=== PATIENT | male | born 1960 | race Hispanic/Latino ===

== ENCOUNTER 2020-11-04 14:04 | Inpatient (IN) | payer OTHER, SELFPAY ==
[~2020-11-04] VITALS: Ht 185.4 cm; Wt 86.6 kg
[2020-11-04 14:44] VITALS: BP 136/88
[2020-11-04 14:50] LABS: ABG BASE EXCESS 0.3 mmol/L (-2.0-3.0); ABG HCO3 21.9 mmol/L (21.0-28.0); ABG OXYGEN SATURATION 83.3 % (95.0-99.0); ABG PCO2 28 mmHg (35-48)
[2020-11-04] MEDS ORDERED: CEFTRIAXONE 1G VIAL IVP ONE (15:00)
[2020-11-04] MEDS ORDERED: 0.9% NACL 250ML IVPB ONE (15:00)
[2020-11-04] MEDS ORDERED: AZITHROMYCIN 500MG+NS 250ML IV ONE (15:00)
[2020-11-04 15:11] LABS: BASOPHILS % (AUTO) 0.1 % (0.0-5.0); HEMATOCRIT 37.8 % (42-54); LYMPHOCYTES % (AUTO) 7.5 % (21.0-51.0); MEAN CORPUSCULAR HGB CONC 35.2 g/dL (32.0-36.0); MEAN CORPUSCULAR VOLUME 85.3 fL (79-99); MONOCYTES % (AUTO) 3.2 % (3.0-13.0); NEUTROPHILS % (AUTO) 88.4 % (40.0-77.0); PLATELET COUNT (AUTO) 192 K/uL (130-400); RED BLOOD CELL COUNT(AUTO) 4.43 MIL/uL (4.50-6.20); RED CELL DISTRIBUTION WIDTH 13.2 % (11.0-15.5); WHITE BLOOD COUNT (AUTO) 8.3 K/uL (4.8-10.8)
[2020-11-04 15:36] LABS: ALANINE AMINOTRANSFERASE 51 U/L (12-78); ALBUMIN 2.8 g/dL (3.5-5.0); ASPARTATE AMINOTRANSFERASE 95 U/L (10-37); BILIRUBIN,TOTAL 1.1 mg/dL (0.2-1.0); CARBON DIOXIDE 26 mmol/L (21-32); CHLORIDE 92 mmol/L (101-111); CREATININE 1.1 mg/dL (0.5-1.5); GLOMERULAR FILTR. RATE CALC 72 mL/min (>60); GLUCOSE,RANDOM 161 mg/dL (70-105); MYOGLOBIN 107 ng/mL (10-92); POTASSIUM 3.8 mmol/L (3.5-5.1); SODIUM SERUM 125 mmol/L (136-145); TOTAL PROTEIN, SERUM 7.4 g/dL (6.0-8.3); TROPONIN I < 0.04 ng/mL (0.00-0.06); UREA NITROGEN, BLOOD 18 mg/dL (7-18)
[2020-11-04 15:41] LABS: CREATINE KINASE, TOTAL 564 U/L (21-232)
[2020-11-04] MEDS ORDERED: CEFTRIAXONE 1G VIAL ONE (16:24)
[2020-11-04] MEDS ORDERED: AZITHROMYCIN 500MG+NS 250ML 250 ML IV ONE (16:24)
[2020-11-04] MEDS ORDERED: 0.9%NACL 1000ML 1,000 ML IV ONE (16:31)
[2020-11-04] MEDS: DEXAMETHASONE SOD PHOSPHATE 4 MG/ML 1ML VIAL IVP SCH (16:35)
[2020-11-04] MEDS ORDERED: CEFTRIAXONE 1G VIAL IV SCH (17:00)
[2020-11-04] MEDS ORDERED: DOXYCYCLINE 100MG+NS 250ML 250 ML IV SCH (17:00)
[2020-11-04] MEDS ORDERED: DEXAMETHASONE SOD PHOSPHATE 4 MG/ML 1ML VIAL IVP SCH (17:00)
[2020-11-04] MEDS ORDERED: ERGOCALCIFEROL (VITAMIN D2) 50,000 UNIT CAPSULE PO ONE (17:00)
[2020-11-04 17:11] LABS: HEMOGLOBIN A1C 6.3 % (4.0-6.0)
[2020-11-04] MEDS ORDERED: ALBUTEROL INHALER 90MCG/INH IH PRN (17:30)
[2020-11-04] MEDS: CEFTRIAXONE 1G VIAL IVP SCH (17:30)
[2020-11-04] MEDS: DOXYCYCLINE 100MG+NS 250ML IV SCH (17:30)
[2020-11-04] MEDS: BARICITINIB (EUA) 2 MG TABLET PO SCH (17:30)
[2020-11-04] MEDS ORDERED: [UNRECOGNIZED DRUG - OTHER] MISC SCH (17:30)
[2020-11-04 18:00] VITALS: BP 142/84
[2020-11-04] MEDS ORDERED: REMDESIVIR (EUA) 520 200 MG in 0.9% NACL 250ML 250 ML IV ONE (18:00)
[2020-11-04] MEDS ORDERED: COMPOUND IV REFRIGERATED 1 EACH IVSOLN MISC PRN (18:00)
[2020-11-04 20:02] VITALS: BP 142/88
[2020-11-04] MEDS ORDERED: ERGOCALCIFEROL (VITAMIN D2) 50,000 UNIT CAPSULE ONE (22:18)
[2020-11-04] MEDS: FAMOTIDINE 20MG TAB PO SCH (22:30)
[2020-11-04 22:49] VITALS: BP 143/88
[2020-11-05] VITALS (11 sets, daily range): BP systolic 124–145; BP diastolic 68–88
[2020-11-05] MEDS: REMDESIVIR LABS MISC SCH (06:43)
[2020-11-05] MEDS: CEFTRIAXONE 1G VIAL IVP SCH ×2 (07:16→18:01)
[2020-11-05] MEDS: DOXYCYCLINE 100MG+NS 250ML IV SCH ×2 (07:16→18:01)
[2020-11-05 08:25] LABS: ALBUMIN 2.4 g/dL (3.5-5.0); BILIRUBIN,TOTAL 0.7 mg/dL (0.2-1.0); CREATININE 0.9 mg/dL (0.5-1.5); CRP QUANTITATIVE 148.5 mg/L (0.00-9.0); POTASSIUM 4.5 mmol/L (3.5-5.1); TOTAL PROTEIN, SERUM 7.1 g/dL (6.0-8.3)
[2020-11-05] MEDS ORDERED: ENOXAPARIN SODIUM 40 MG/0.4 ML SYRINGE SQ SCH ×2 (09:00)
[2020-11-05] MEDS: ZINC SULFATE 220 CAPSULE PO SCH (10:44)
[2020-11-05] MEDS: FAMOTIDINE 20MG TAB PO SCH ×2 (10:44→21:00)
[2020-11-05] MEDS: BARICITINIB (EUA) 2 MG TABLET PO SCH (10:44)
[2020-11-05] MEDS: ASCORBIC ACID 500 MG TAB PO SCH (10:44)
[2020-11-05] MEDS: ENOXAPARIN SODIUM 40 MG/0.4 ML SYRINGE SQ SCH ×2 (10:45→21:03)
[2020-11-05] MEDS: REMDESIVIR (EUA) 520 100 MG in 0.9% NACL 250ML 250 ML IV SCH (14:49)
[2020-11-05] MEDS ORDERED: DEXAMETHASONE SOD PHOSPHATE 4 MG/ML 1ML VIAL IVP SCH (15:00)
[2020-11-05] MEDS: DEXAMETHASONE SOD PHOSPHATE 4 MG/ML 1ML VIAL IVP SCH (15:00)
[2020-11-05 16:04] LABS: BASOPHILS % (AUTO) 0.2 % (0.0-5.0); EOSINOPHILS % (AUTO) 2.4 % (0.0-8.0); HEMATOCRIT 38.9 % (42-54); LYMPHOCYTES % (AUTO) 13.2 % (21.0-51.0); MEAN CORPUSCULAR HEMOGLOBIN 30.1 pg (27.0-33.0); MEAN CORPUSCULAR HGB CONC 34.2 g/dL (32.0-36.0); MONOCYTES % (AUTO) 2.6 % (3.0-13.0); NEUTROPHILS % (AUTO) 80.9 % (40.0-77.0); PLATELET COUNT (AUTO) 256 K/uL (130-400); RED BLOOD CELL COUNT(AUTO) 4.42 MIL/uL (4.50-6.20); RED CELL DISTRIBUTION WIDTH 13.5 % (11.0-15.5); WHITE BLOOD COUNT (AUTO) 11.1 K/uL (4.8-10.8)
[2020-11-05 18:16] LABS: AMPHET/METH SCREEN,URINE NEGATIVE (NEGATIVE); BARBITURATE SCREEN, URINE NEGATIVE (NEGATIVE); BENZODIAZEPINES SCREEN,URINE NEGATIVE (NEGATIVE); CANNABINOID SCREEN,URINE NEGATIVE (NEGATIVE); COCAINE SCREEN,URINE NEGATIVE (NEGATIVE); OPIATE SCREEN,URINE NEGATIVE (NEGATIVE); PHENCYCLIDINE SCREEN,URINE NEGATIVE (NEGATIVE)
[2020-11-06] VITALS (13 sets, daily range): BP systolic 107–138; BP diastolic 64–81
[2020-11-06 03:40] LABS: ABG BASE EXCESS -0.1 mmol/L (-2.0-3.0); ABG HCO3 22.9 mmol/L (21.0-28.0); ABG OXYGEN SATURATION 95.8 % (95.0-99.0); ABG PCO2 33 mmHg (35-48)
[2020-11-06] MEDS: DOXYCYCLINE 100MG+NS 250ML IV SCH ×2 (05:58→17:48)
[2020-11-06] MEDS: CEFTRIAXONE 1G VIAL IVP SCH ×2 (05:59→17:48)
[2020-11-06] MEDS: REMDESIVIR LABS MISC SCH (06:14)
[2020-11-06] MEDS: ENOXAPARIN SODIUM 40 MG/0.4 ML SYRINGE SQ SCH ×2 (09:04→21:38)
[2020-11-06] MEDS: Vitamin B Complex/Vit C/Folic Acid PO SCH (09:04)
[2020-11-06] MEDS: SOLU-MEDROL 40MG VIAL IVP SCH ×2 (09:04→21:37)
[2020-11-06] MEDS: BARICITINIB (EUA) 2 MG TABLET PO SCH (09:04)
[2020-11-06] MEDS: ZINC SULFATE 220 CAPSULE PO SCH (09:04)
[2020-11-06] MEDS: ASCORBIC ACID 500 MG TAB PO SCH (09:04)
[2020-11-06] MEDS: FAMOTIDINE 20MG TAB PO SCH ×2 (09:04→21:37)
[2020-11-06 09:39] LABS: ALBUMIN 2.5 g/dL (3.5-5.0); CRP QUANTITATIVE 119.4 mg/L (0.00-9.0); POTASSIUM 4.1 mmol/L (3.5-5.1); TOTAL PROTEIN, SERUM 7.3 g/dL (6.0-8.3)
[2020-11-06] MEDS: REMDESIVIR (EUA) 520 100 MG in 0.9% NACL 250ML 250 ML IV SCH (13:34)
[2020-11-06] MEDS: DEXAMETHASONE SOD PHOSPHATE 4 MG/ML 1ML VIAL IVP SCH (14:59)
[2020-11-06 16:51] LABS: BASOPHILS % (AUTO) 0.1 % (0.0-5.0); HEMATOCRIT 37.3 % (42-54); LYMPHOCYTES % (AUTO) 5.1 % (21.0-51.0); MEAN CORPUSCULAR HEMOGLOBIN 30.2 pg (27.0-33.0); MEAN CORPUSCULAR HGB CONC 34.3 g/dL (32.0-36.0); MONOCYTES % (AUTO) 1.3 % (3.0-13.0); NEUTROPHILS % (AUTO) 92.7 % (40.0-77.0); PLATELET COUNT (AUTO) 288 K/uL (130-400); RED BLOOD CELL COUNT(AUTO) 4.24 MIL/uL (4.50-6.20); RED CELL DISTRIBUTION WIDTH 13.6 % (11.0-15.5); WHITE BLOOD COUNT (AUTO) 12.1 K/uL (4.8-10.8)
[2020-11-06] MEDS ORDERED: LACTATED RINGERS 1000ML 1,000 ML IV SCH (19:30)
[2020-11-07] VITALS (19 sets, daily range): BP systolic 114–152; BP diastolic 64–92
[2020-11-07 03:21] LABS: ABG BASE EXCESS -1.3 mmol/L (-2.0-3.0); ABG HCO3 22.8 mmol/L (21.0-28.0); ABG OXYGEN SATURATION 95.5 % (95.0-99.0); ABG PCO2 37 mmHg (35-48)
[2020-11-07] MEDS: CEFTRIAXONE 1G VIAL IVP SCH ×2 (05:30→17:15)
[2020-11-07] MEDS: DOXYCYCLINE 100MG+NS 250ML IV SCH ×2 (05:30→17:15)
[2020-11-07 06:26] LABS: HEMATOCRIT 38.8 % (42-54); LYMPHOCYTES % (AUTO) 6.1 % (21.0-51.0); MEAN CORPUSCULAR HEMOGLOBIN 30.1 pg (27.0-33.0); MEAN CORPUSCULAR HGB CONC 33.5 g/dL (32.0-36.0); MEAN CORPUSCULAR VOLUME 89.8 fL (79-99); MONOCYTES % (AUTO) 1.6 % (3.0-13.0); NEUTROPHILS % (AUTO) 90.7 % (40.0-77.0); PLATELET COUNT (AUTO) 299 K/uL (130-400); RED BLOOD CELL COUNT(AUTO) 4.32 MIL/uL (4.50-6.20); RED CELL DISTRIBUTION WIDTH 13.7 % (11.0-15.5); WHITE BLOOD COUNT (AUTO) 11.8 K/uL (4.8-10.8)
[2020-11-07 06:39] LABS: ALBUMIN 2.3 g/dL (3.5-5.0); BILIRUBIN,TOTAL 0.7 mg/dL (0.2-1.0); CREATININE 0.9 mg/dL (0.5-1.5); CRP QUANTITATIVE 151.7 mg/L (0.00-9.0); POTASSIUM 4.7 mmol/L (3.5-5.1)
[2020-11-07] MEDS: REMDESIVIR LABS MISC SCH (08:10)
[2020-11-07] MEDS: Vitamin B Complex/Vit C/Folic Acid PO SCH (09:02)
[2020-11-07] MEDS: FAMOTIDINE 20MG TAB PO SCH ×2 (09:02→20:22)
[2020-11-07] MEDS: ZINC SULFATE 220 CAPSULE PO SCH (09:02)
[2020-11-07] MEDS: SOLU-MEDROL 40MG VIAL IVP SCH ×2 (09:02→20:22)
[2020-11-07] MEDS: ASCORBIC ACID 500 MG TAB PO SCH (09:02)
[2020-11-07] MEDS: DEXAMETHASONE SOD PHOSPHATE 4 MG/ML 1ML VIAL IVP SCH (09:15)
[2020-11-07] MEDS: BARICITINIB (EUA) 2 MG TABLET PO SCH (09:36)
[2020-11-07] MEDS: ENOXAPARIN SODIUM 60 MG/0.6 ML SQ SCH ×2 (10:29→20:23)
[2020-11-07] MEDS: REMDESIVIR (EUA) 520 100 MG in 0.9% NACL 250ML 250 ML IV SCH (13:19)
[2020-11-08] VITALS (24 sets, daily range): BP systolic 111–157; BP diastolic 61–95
[2020-11-08 04:14] LABS: BASOPHILS % (AUTO) 0.1 % (0.0-5.0); HEMATOCRIT 37.7 % (42-54); LYMPHOCYTES % (AUTO) 5.4 % (21.0-51.0); MEAN CORPUSCULAR HGB CONC 34.5 g/dL (32.0-36.0); MEAN CORPUSCULAR VOLUME 87.1 fL (79-99); MONOCYTES % (AUTO) 1.7 % (3.0-13.0); NEUTROPHILS % (AUTO) 92.1 % (40.0-77.0); PLATELET COUNT (AUTO) 378 K/uL (130-400); RED BLOOD CELL COUNT(AUTO) 4.33 MIL/uL (4.50-6.20); RED CELL DISTRIBUTION WIDTH 13.2 % (11.0-15.5); WHITE BLOOD COUNT (AUTO) 11.7 K/uL (4.8-10.8)
[2020-11-08 04:28] LABS: B-TYPE NATRIURETIC PEPTIDE 17 pg/mL (0-100)
[2020-11-08 04:36] LABS: ALBUMIN 2.2 g/dL (3.5-5.0); BILIRUBIN,TOTAL 0.6 mg/dL (0.2-1.0); CREATININE 0.8 mg/dL (0.5-1.5); CRP QUANTITATIVE 59.5 mg/L (0.00-9.0); MAGNESIUM 2.5 mg/dL (1.80-2.40); PHOSPHORUS 2.8 mg/dL (2.5-4.9); POTASSIUM 4.2 mmol/L (3.5-5.1); THYROID STIMULATING HORMONE 0.42 uIU/mL (0.36-3.74); TOTAL PROTEIN, SERUM 6.6 g/dL (6.0-8.3)
[2020-11-08] MEDS: DOXYCYCLINE 100MG+NS 250ML IV SCH ×2 (05:37→16:54)
[2020-11-08] MEDS: CEFTRIAXONE 1G VIAL IVP SCH ×2 (05:37→16:54)
[2020-11-08] MEDS: REMDESIVIR LABS MISC SCH (06:00)
[2020-11-08] MEDS: DEXAMETHASONE SOD PHOSPHATE 4 MG/ML 1ML VIAL IVP SCH (07:14)
[2020-11-08] MEDS: ZINC SULFATE 220 CAPSULE PO SCH (08:05)
[2020-11-08] MEDS: Vitamin B Complex/Vit C/Folic Acid PO SCH (08:05)
[2020-11-08] MEDS: ENOXAPARIN SODIUM 60 MG/0.6 ML SQ SCH ×2 (08:05→20:25)
[2020-11-08] MEDS: FAMOTIDINE 20MG TAB PO SCH ×2 (08:06→20:25)
[2020-11-08] MEDS: ASCORBIC ACID 500 MG TAB PO SCH (08:06)
[2020-11-08] MEDS: SOLU-MEDROL 40MG VIAL IVP SCH ×2 (08:06→20:25)
[2020-11-08] MEDS: BARICITINIB (EUA) 2 MG TABLET PO SCH (09:40)
[2020-11-08] MEDS: REMDESIVIR (EUA) 520 100 MG in 0.9% NACL 250ML 250 ML IV SCH (14:47)
[2020-11-08] MEDS ORDERED: LACTULOSE 20 GM/30 ML UDCUP PO PRN (18:30)
[2020-11-09] VITALS (23 sets, daily range): BP systolic 98–148; BP diastolic 62–97
[2020-11-09 04:39] LABS: BASOPHILS % (AUTO) 0.1 % (0.0-5.0); EOSINOPHILS % (AUTO) 0.1 % (0.0-8.0); HEMATOCRIT 39.1 % (42-54); LYMPHOCYTES % (AUTO) 5.7 % (21.0-51.0); MEAN CORPUSCULAR HEMOGLOBIN 30.1 pg (27.0-33.0); MEAN CORPUSCULAR VOLUME 88.5 fL (79-99); MONOCYTES % (AUTO) 1.9 % (3.0-13.0); NEUTROPHILS % (AUTO) 91.4 % (40.0-77.0); PLATELET COUNT (AUTO) 366 K/uL (130-400); RED BLOOD CELL COUNT(AUTO) 4.42 MIL/uL (4.50-6.20); RED CELL DISTRIBUTION WIDTH 13.2 % (11.0-15.5); WHITE BLOOD COUNT (AUTO) 10.8 K/uL (4.8-10.8)
[2020-11-09 04:51] LABS: ALBUMIN 2.4 g/dL (3.5-5.0); BILIRUBIN,TOTAL 0.7 mg/dL (0.2-1.0); CREATININE 0.8 mg/dL (0.5-1.5); CRP QUANTITATIVE 42.9 mg/L (0.00-9.0); MAGNESIUM 2.2 mg/dL (1.80-2.40); PHOSPHORUS 3.6 mg/dL (2.5-4.9); POTASSIUM 4.8 mmol/L (3.5-5.1); TOTAL PROTEIN, SERUM 6.9 g/dL (6.0-8.3)
[2020-11-09] MEDS: DEXAMETHASONE SOD PHOSPHATE 4 MG/ML 1ML VIAL IVP SCH (07:13)
[2020-11-09] MEDS: DOCUSATE SODIUM 100 MG CAP PO SCH (08:24)
[2020-11-09] MEDS: SENNOSIDES 8.6 MG TABLET PO SCH (08:24)
[2020-11-09] MEDS: BARICITINIB (EUA) 2 MG TABLET PO SCH (08:24)
[2020-11-09] MEDS: FAMOTIDINE 20MG TAB PO SCH ×2 (08:24→20:26)
[2020-11-09] MEDS: SOLU-MEDROL 40MG VIAL IVP SCH ×2 (08:24→20:26)
[2020-11-09] MEDS: ENOXAPARIN SODIUM 60 MG/0.6 ML SQ SCH (08:25)
[2020-11-09] MEDS ORDERED: ACETAMINOPHEN 325 MG TAB PO PRN (10:00)
[2020-11-09] MEDS ORDERED: IOHEXOL 350 MG/ML 100ML INFUS..BTL IV ONE (15:26)
[2020-11-09] MEDS ORDERED: LACTULOSE 20 GM/30 ML UDCUP PO ONE (20:00)
[2020-11-09] MEDS: ENOXAPARIN SODIUM 120 MG/0.8ML SQ SCH (20:27)
[2020-11-10] VITALS (24 sets, daily range): BP systolic 113–143; BP diastolic 56–85
[2020-11-10 04:57] LABS: BASOPHILS % (AUTO) 0.1 % (0.0-5.0); EOSINOPHILS % (AUTO) 0.4 % (0.0-8.0); HEMATOCRIT 38.5 % (42-54); LYMPHOCYTES % (AUTO) 7.4 % (21.0-51.0); MEAN CORPUSCULAR HEMOGLOBIN 29.9 pg (27.0-33.0); MEAN CORPUSCULAR VOLUME 87.9 fL (79-99); MONOCYTES % (AUTO) 1.4 % (3.0-13.0); NEUTROPHILS % (AUTO) 89.2 % (40.0-77.0); PLATELET COUNT (AUTO) 339 K/uL (130-400); RED BLOOD CELL COUNT(AUTO) 4.38 MIL/uL (4.50-6.20); RED CELL DISTRIBUTION WIDTH 13.2 % (11.0-15.5)
[2020-11-10 05:21] LABS: ALBUMIN 2.3 g/dL (3.5-5.0); BILIRUBIN,TOTAL 0.8 mg/dL (0.2-1.0); CREATININE 0.8 mg/dL (0.5-1.5); MAGNESIUM 2.5 mg/dL (1.80-2.40); PHOSPHORUS 3.8 mg/dL (2.5-4.9); POTASSIUM 4.7 mmol/L (3.5-5.1); TOTAL PROTEIN, SERUM 6.9 g/dL (6.0-8.3)
[2020-11-10 05:37] LABS: CRP QUANTITATIVE 68.5 mg/L (0.00-9.0)
[2020-11-10] MEDS: DEXAMETHASONE SOD PHOSPHATE 4 MG/ML 1ML VIAL IVP SCH (07:12)
[2020-11-10] MEDS: SENNOSIDES 8.6 MG TABLET PO SCH (07:56)
[2020-11-10] MEDS: BARICITINIB (EUA) 2 MG TABLET PO SCH (07:56)
[2020-11-10] MEDS: DOCUSATE SODIUM 100 MG CAP PO SCH (07:56)
[2020-11-10] MEDS: FAMOTIDINE 20MG TAB PO SCH ×2 (07:56→20:00)
[2020-11-10] MEDS: SOLU-MEDROL 40MG VIAL IVP SCH ×2 (07:56→20:00)
[2020-11-10] MEDS: ENOXAPARIN SODIUM 120 MG/0.8ML SQ SCH (07:57)
[2020-11-10] MEDS ORDERED: PHARMACY COMMUNICATION MISC SCH (12:30)
[2020-11-10] MEDS: REMDESIVIR (EUA) 520 100 MG in 0.9% NACL 250ML 250 ML IV SCH (13:27)
[2020-11-10] MEDS: ENOXAPARIN SODIUM 60 MG/0.6 ML SQ SCH (20:00)
[2020-11-11] VITALS (22 sets, daily range): BP systolic 95–138; BP diastolic 52–91
[2020-11-11 03:44] LABS: ABG BASE EXCESS 0.1 mmol/L (-2.0-3.0); ABG OXYGEN SATURATION 92.4 % (95.0-99.0); ABG PCO2 37 mmHg (35-48)
[2020-11-11 04:22] LABS: BASOPHILS % (AUTO) 0.2 % (0.0-5.0); EOSINOPHILS % (AUTO) 0.2 % (0.0-8.0); LYMPHOCYTES % (AUTO) 9.1 % (21.0-51.0); MEAN CORPUSCULAR HEMOGLOBIN 29.8 pg (27.0-33.0); MEAN CORPUSCULAR HGB CONC 33.7 g/dL (32.0-36.0); MEAN CORPUSCULAR VOLUME 88.4 fL (79-99); MONOCYTES % (AUTO) 1.5 % (3.0-13.0); NEUTROPHILS % (AUTO) 86.5 % (40.0-77.0); PLATELET COUNT (AUTO) 356 K/uL (130-400); RED CELL DISTRIBUTION WIDTH 13.2 % (11.0-15.5); WHITE BLOOD COUNT (AUTO) 8.2 K/uL (4.8-10.8)
[2020-11-11 04:51] LABS: ALBUMIN 2.2 g/dL (3.5-5.0); BILIRUBIN,TOTAL 0.7 mg/dL (0.2-1.0); CREATININE 0.8 mg/dL (0.5-1.5); CRP QUANTITATIVE 62.2 mg/L (0.00-9.0); MAGNESIUM 2.1 mg/dL (1.80-2.40); PHOSPHORUS 3.5 mg/dL (2.5-4.9); POTASSIUM 4.5 mmol/L (3.5-5.1); TOTAL PROTEIN, SERUM 6.8 g/dL (6.0-8.3)
[2020-11-11] MEDS: REMDESIVIR LABS MISC SCH (06:05)
[2020-11-11] MEDS: SENNOSIDES 8.6 MG TABLET PO SCH (08:59)
[2020-11-11] MEDS: DOCUSATE SODIUM 100 MG CAP PO SCH (08:59)
[2020-11-11] MEDS: BARICITINIB (EUA) 2 MG TABLET PO SCH (09:00)
[2020-11-11] MEDS: FAMOTIDINE 20MG TAB PO SCH ×2 (09:00→21:19)
[2020-11-11] MEDS: SOLU-MEDROL 40MG VIAL IVP SCH ×2 (09:00→21:18)
[2020-11-11] MEDS: ENOXAPARIN SODIUM 60 MG/0.6 ML SQ SCH ×2 (09:01→21:19)
[2020-11-11] MEDS: REMDESIVIR (EUA) 520 100 MG in 0.9% NACL 250ML 250 ML IV SCH (12:58)
[2020-11-12] VITALS (22 sets, daily range): BP systolic 91–129; BP diastolic 48–83
[2020-11-12 04:44] LABS: HEMATOCRIT 39.1 % (42-54); MEAN CORPUSCULAR HEMOGLOBIN 29.7 pg (27.0-33.0); MEAN CORPUSCULAR VOLUME 87.3 fL (79-99); NUCLEATED RED BLOOD CELLS 0.2 % (0.0-0.19); PLATELET COUNT (AUTO) 399 K/uL (130-400); RED BLOOD CELL COUNT(AUTO) 4.48 MIL/uL (4.50-6.20); RED CELL DISTRIBUTION WIDTH 13.2 % (11.0-15.5); WHITE BLOOD COUNT (AUTO) 10.8 K/uL (4.8-10.8)
[2020-11-12 04:56] LABS: ALBUMIN 2.2 g/dL (3.5-5.0); BILIRUBIN,TOTAL 0.6 mg/dL (0.2-1.0); CREATININE 0.8 mg/dL (0.5-1.5); CRP QUANTITATIVE 30.4 mg/L (0.00-9.0); MAGNESIUM 2.2 mg/dL (1.80-2.40); PHOSPHORUS 3.9 mg/dL (2.5-4.9); POTASSIUM 4.8 mmol/L (3.5-5.1); TOTAL PROTEIN, SERUM 6.9 g/dL (6.0-8.3)
[2020-11-12 05:07] LABS: BAND NEUTROPHILS % (MANUAL) 1 % (0-2); EOSINOPHILS % (MANUAL) 2 % (1-6); LYMPHOCYTES % (MANUAL) 2 % (22-44); MAN.DIFF COMMENT-IMPRESSION MANUAL DIFFERENTIAL; MONOCYTES % (MANUAL) 2 % (2-9); SEGMENTED NEUTROPHILS % 93 % (40-70)
[2020-11-12] MEDS: REMDESIVIR LABS MISC SCH (06:22)
[2020-11-12] MEDS: DOCUSATE SODIUM 100 MG CAP PO SCH (08:29)
[2020-11-12] MEDS: FAMOTIDINE 20MG TAB PO SCH ×2 (08:30→20:31)
[2020-11-12] MEDS: SENNOSIDES 8.6 MG TABLET PO SCH (08:30)
[2020-11-12] MEDS: SOLU-MEDROL 40MG VIAL IVP SCH ×2 (08:31→20:33)
[2020-11-12] MEDS: ENOXAPARIN SODIUM 60 MG/0.6 ML SQ SCH ×2 (08:31→20:33)
[2020-11-12] MEDS: BARICITINIB (EUA) 2 MG TABLET PO SCH (09:39)
[2020-11-12] MEDS: REMDESIVIR (EUA) 520 100 MG in 0.9% NACL 250ML 250 ML IV SCH (12:54)
[2020-11-12] MEDS: LACTULOSE 20 GM/30 ML UDCUP PO SCH (13:45)
[2020-11-13] VITALS (23 sets, daily range): BP systolic 99–148; BP diastolic 57–88
[2020-11-13 03:35] LABS: BASOPHILS % (AUTO) 0.2 % (0.0-5.0); EOSINOPHILS % (AUTO) 0.2 % (0.0-8.0); HEMATOCRIT 38.8 % (42-54); LYMPHOCYTES % (AUTO) 5.9 % (21.0-51.0); MEAN CORPUSCULAR HEMOGLOBIN 30.2 pg (27.0-33.0); MEAN CORPUSCULAR HGB CONC 34.3 g/dL (32.0-36.0); MONOCYTES % (AUTO) 1.7 % (3.0-13.0); NEUTROPHILS % (AUTO) 89.3 % (40.0-77.0); PLATELET COUNT (AUTO) 384 K/uL (130-400); RED BLOOD CELL COUNT(AUTO) 4.41 MIL/uL (4.50-6.20); RED CELL DISTRIBUTION WIDTH 13.1 % (11.0-15.5); WHITE BLOOD COUNT (AUTO) 9.9 K/uL (4.8-10.8)
[2020-11-13 04:05] LABS: ALBUMIN 2.3 g/dL (3.5-5.0); BILIRUBIN,TOTAL 0.7 mg/dL (0.2-1.0); CREATININE 0.7 mg/dL (0.5-1.5); CRP QUANTITATIVE 19.8 mg/L (0.00-9.0); POTASSIUM 4.5 mmol/L (3.5-5.1)
[2020-11-13] MEDS: REMDESIVIR LABS MISC SCH (08:31)
[2020-11-13] MEDS: BARICITINIB (EUA) 2 MG TABLET PO SCH (08:32)
[2020-11-13] MEDS: SOLU-MEDROL 40MG VIAL IVP SCH ×2 (08:32→20:40)
[2020-11-13] MEDS: DOCUSATE SODIUM 100 MG CAP PO SCH (08:32)
[2020-11-13] MEDS: SENNOSIDES 8.6 MG TABLET PO SCH (08:32)
[2020-11-13] MEDS: LACTULOSE 20 GM/30 ML UDCUP PO SCH (08:32)
[2020-11-13] MEDS: FAMOTIDINE 20MG TAB PO SCH ×2 (08:32→20:41)
[2020-11-13] MEDS: ENOXAPARIN SODIUM 60 MG/0.6 ML SQ SCH ×2 (08:33→20:39)
[2020-11-13] MEDS: REMDESIVIR (EUA) 520 100 MG in 0.9% NACL 250ML 250 ML IV SCH (13:23)
[2020-11-14] VITALS (24 sets, daily range): BP systolic 102–138; BP diastolic 63–91
[2020-11-14] MEDS: REMDESIVIR LABS MISC SCH (06:00)
[2020-11-14] MEDS: SOLU-MEDROL 40MG VIAL IVP SCH (09:41)
[2020-11-14] MEDS: LACTULOSE 20 GM/30 ML UDCUP PO SCH (09:41)
[2020-11-14] MEDS: BARICITINIB (EUA) 2 MG TABLET PO SCH (09:41)
[2020-11-14] MEDS: FAMOTIDINE 20MG TAB PO SCH ×2 (09:42→21:00)
[2020-11-14] MEDS: DOCUSATE SODIUM 100 MG CAP PO SCH (09:42)
[2020-11-14] MEDS: POLYETHYLENE GLYCOL 3350 17 GM POWD.PACK PO SCH (09:42)
[2020-11-14] MEDS: SENNOSIDES 8.6 MG TABLET PO SCH (09:42)
[2020-11-14] MEDS: ENOXAPARIN SODIUM 60 MG/0.6 ML SQ SCH ×2 (09:43→21:00)
[2020-11-14] MEDS: REMDESIVIR (EUA) 520 100 MG in 0.9% NACL 250ML 250 ML IV SCH (12:18)
[2020-11-14] MEDS ORDERED: ENOXAPARIN SODIUM 40 MG/0.4 ML SYRINGE SQ SCH (21:00)
[2020-11-15] VITALS (24 sets, daily range): BP systolic 103–138; BP diastolic 58–81
[2020-11-15 04:34] LABS: BASOPHILS % (AUTO) 0.1 % (0.0-5.0); EOSINOPHILS % (AUTO) 0.1 % (0.0-8.0); HEMATOCRIT 41.2 % (42-54); LYMPHOCYTES % (AUTO) 6.9 % (21.0-51.0); MEAN CORPUSCULAR HEMOGLOBIN 29.6 pg (27.0-33.0); MEAN CORPUSCULAR HGB CONC 33.7 g/dL (32.0-36.0); MEAN CORPUSCULAR VOLUME 87.7 fL (79-99); MONOCYTES % (AUTO) 3.5 % (3.0-13.0); NEUTROPHILS % (AUTO) 87.7 % (40.0-77.0); PLATELET COUNT (AUTO) 356 K/uL (130-400); RED CELL DISTRIBUTION WIDTH 13.1 % (11.0-15.5); WHITE BLOOD COUNT (AUTO) 13.8 K/uL (4.8-10.8)
[2020-11-15 04:53] LABS: ALBUMIN 2.3 g/dL (3.5-5.0); BILIRUBIN,TOTAL 0.8 mg/dL (0.2-1.0); CREATININE 0.8 mg/dL (0.5-1.5); CRP QUANTITATIVE 14.8 mg/L (0.00-9.0); POTASSIUM 4.3 mmol/L (3.5-5.1); TOTAL PROTEIN, SERUM 7.3 g/dL (6.0-8.3)
[2020-11-15] MEDS: DEXAMETHASONE SOD PHOSPHATE 4 MG/ML 1ML VIAL IVP SCH (08:24)
[2020-11-15] MEDS: FAMOTIDINE 20MG TAB PO SCH ×2 (08:24→21:30)
[2020-11-15] MEDS: LACTULOSE 20 GM/30 ML UDCUP PO SCH (08:25)
[2020-11-15] MEDS: SENNOSIDES 8.6 MG TABLET PO SCH (08:25)
[2020-11-15] MEDS: POLYETHYLENE GLYCOL 3350 17 GM POWD.PACK PO SCH (08:25)
[2020-11-15] MEDS: ENOXAPARIN SODIUM 60 MG/0.6 ML SQ SCH ×2 (08:25→21:30)
[2020-11-15] MEDS: BARICITINIB (EUA) 2 MG TABLET PO SCH (08:25)
[2020-11-15] MEDS: DOCUSATE SODIUM 100 MG CAP PO SCH (08:25)
[2020-11-16] VITALS (19 sets, daily range): BP systolic 101–119; BP diastolic 52–77
[2020-11-16 04:09] LABS: HEMATOCRIT 40.2 % (42-54); MEAN CORPUSCULAR HEMOGLOBIN 30.2 pg (27.0-33.0); MEAN CORPUSCULAR HGB CONC 34.6 g/dL (32.0-36.0); MEAN CORPUSCULAR VOLUME 87.4 fL (79-99); PLATELET COUNT (AUTO) 326 K/uL (130-400); RED CELL DISTRIBUTION WIDTH 13.3 % (11.0-15.5); WHITE BLOOD COUNT (AUTO) 13.6 K/uL (4.8-10.8)
[2020-11-16 05:00] LABS: BAND NEUTROPHILS % (MANUAL) 1 % (0-2); LYMPHOCYTES % (MANUAL) 5 % (22-44); MAN.DIFF COMMENT-IMPRESSION MANUAL DIFFERENTIAL; MONOCYTES % (MANUAL) 3 % (2-9); SEGMENTED NEUTROPHILS % 91 % (40-70)
[2020-11-16 05:01] LABS: PLATELET MORPHOLOGY COMMENT ADEQUATE
[2020-11-16 05:41] LABS: ALBUMIN 2.3 g/dL (3.5-5.0); BILIRUBIN,TOTAL 0.8 mg/dL (0.2-1.0); CREATININE 0.8 mg/dL (0.5-1.5); CRP QUANTITATIVE 43.4 mg/L (0.00-9.0); MAGNESIUM 2.3 mg/dL (1.80-2.40); POTASSIUM 4.1 mmol/L (3.5-5.1); TOTAL PROTEIN, SERUM 7.2 g/dL (6.0-8.3)
[2020-11-16] MEDS: DEXAMETHASONE SOD PHOSPHATE 4 MG/ML 1ML VIAL IVP SCH ×3 (09:13→21:04)
[2020-11-16] MEDS: POLYETHYLENE GLYCOL 3350 17 GM POWD.PACK PO SCH (09:13)
[2020-11-16] MEDS: FAMOTIDINE 20MG TAB PO SCH ×2 (09:14→21:04)
[2020-11-16] MEDS: ENOXAPARIN SODIUM 60 MG/0.6 ML SQ SCH ×2 (09:14→21:04)
[2020-11-16] MEDS: LACTULOSE 20 GM/30 ML UDCUP PO SCH (09:14)
[2020-11-16] MEDS: BARICITINIB (EUA) 2 MG TABLET PO SCH (09:14)
[2020-11-16] MEDS: SENNOSIDES 8.6 MG TABLET PO SCH (09:14)
[2020-11-16] MEDS: DOCUSATE SODIUM 100 MG CAP PO SCH (09:14)
[2020-11-17] VITALS (21 sets, daily range): BP systolic 91–117; BP diastolic 62–80
[2020-11-17 04:52] LABS: BASOPHILS % (AUTO) 0.3 % (0.0-5.0); HEMATOCRIT 40.1 % (42-54); LYMPHOCYTES % (AUTO) 9.9 % (21.0-51.0); MEAN CORPUSCULAR HEMOGLOBIN 29.7 pg (27.0-33.0); MEAN CORPUSCULAR HGB CONC 33.7 g/dL (32.0-36.0); MEAN CORPUSCULAR VOLUME 88.3 fL (79-99); MONOCYTES % (AUTO) 3.1 % (3.0-13.0); NEUTROPHILS % (AUTO) 84.4 % (40.0-77.0); PLATELET COUNT (AUTO) 329 K/uL (130-400); RED BLOOD CELL COUNT(AUTO) 4.54 MIL/uL (4.50-6.20); RED CELL DISTRIBUTION WIDTH 13.4 % (11.0-15.5); WHITE BLOOD COUNT (AUTO) 7.4 K/uL (4.8-10.8)
[2020-11-17 05:34] LABS: ALBUMIN 2.3 g/dL (3.5-5.0); CREATININE 0.7 mg/dL (0.5-1.5); POTASSIUM 4.4 mmol/L (3.5-5.1); TOTAL PROTEIN, SERUM 7.2 g/dL (6.0-8.3)
[2020-11-17 06:35] LABS: BILIRUBIN,TOTAL 0.8 mg/dL (0.2-1.0)
[2020-11-17] MEDS: POLYETHYLENE GLYCOL 3350 17 GM POWD.PACK PO SCH (09:16)
[2020-11-17] MEDS: ZINC SULFATE 220 CAPSULE PO SCH (09:17)
[2020-11-17] MEDS: DOCUSATE SODIUM 100 MG CAP PO SCH (09:17)
[2020-11-17] MEDS: LACTULOSE 20 GM/30 ML UDCUP PO SCH (09:17)
[2020-11-17] MEDS: DEXAMETHASONE SOD PHOSPHATE 4 MG/ML 1ML VIAL IVP SCH ×2 (09:17→20:39)
[2020-11-17] MEDS: SENNOSIDES 8.6 MG TABLET PO SCH (09:17)
[2020-11-17] MEDS: ASCORBIC ACID 500 MG TAB PO SCH (09:17)
[2020-11-17] MEDS: FAMOTIDINE 20MG TAB PO SCH ×2 (09:17→20:39)
[2020-11-17] MEDS: BARICITINIB (EUA) 2 MG TABLET PO SCH (09:17)
[2020-11-17] MEDS: ENOXAPARIN SODIUM 100 MG/1 ML SQ SCH ×2 (09:18→20:40)
[2020-11-18] VITALS (22 sets, daily range): BP systolic 95–141; BP diastolic 28–83
[2020-11-18 04:20] LABS: BASOPHILS % (AUTO) 0.1 % (0.0-5.0); EOSINOPHILS % (AUTO) 0.2 % (0.0-8.0); HEMATOCRIT 38.5 % (42-54); LYMPHOCYTES % (AUTO) 9.7 % (21.0-51.0); MEAN CORPUSCULAR HEMOGLOBIN 29.5 pg (27.0-33.0); MEAN CORPUSCULAR HGB CONC 33.8 g/dL (32.0-36.0); MEAN CORPUSCULAR VOLUME 87.5 fL (79-99); MONOCYTES % (AUTO) 3.5 % (3.0-13.0); NEUTROPHILS % (AUTO) 84.5 % (40.0-77.0); PLATELET COUNT (AUTO) 347 K/uL (130-400); RED CELL DISTRIBUTION WIDTH 13.3 % (11.0-15.5); WHITE BLOOD COUNT (AUTO) 8.7 K/uL (4.8-10.8)
[2020-11-18 04:40] LABS: ALBUMIN 2.3 g/dL (3.5-5.0); BILIRUBIN,TOTAL 0.7 mg/dL (0.2-1.0); CREATININE 0.7 mg/dL (0.5-1.5); CRP QUANTITATIVE 15.1 mg/L (0.00-9.0); POTASSIUM 4.5 mmol/L (3.5-5.1)
[2020-11-18] MEDS: LACTULOSE 20 GM/30 ML UDCUP PO SCH (08:39)
[2020-11-18] MEDS: DEXAMETHASONE SOD PHOSPHATE 4 MG/ML 1ML VIAL IVP SCH ×2 (08:39→20:40)
[2020-11-18] MEDS: ASCORBIC ACID 500 MG TAB PO SCH (08:40)
[2020-11-18] MEDS: ZINC SULFATE 220 CAPSULE PO SCH (08:40)
[2020-11-18] MEDS: POLYETHYLENE GLYCOL 3350 17 GM POWD.PACK PO SCH (08:40)
[2020-11-18] MEDS: DOCUSATE SODIUM 100 MG CAP PO SCH (08:40)
[2020-11-18] MEDS: FAMOTIDINE 20MG TAB PO SCH ×2 (08:40→20:40)
[2020-11-18] MEDS: SENNOSIDES 8.6 MG TABLET PO SCH (08:40)
[2020-11-18] MEDS: ENOXAPARIN SODIUM 100 MG/1 ML SQ SCH ×2 (08:41→20:40)
[2020-11-19] VITALS (15 sets, daily range): BP systolic 11–139; BP diastolic 33–74
[2020-11-19 05:37] LABS: BASOPHILS % (AUTO) 0.1 % (0.0-5.0); EOSINOPHILS % (AUTO) 0.2 % (0.0-8.0); LYMPHOCYTES % (AUTO) 10.2 % (21.0-51.0); MEAN CORPUSCULAR HEMOGLOBIN 30.2 pg (27.0-33.0); MEAN CORPUSCULAR VOLUME 88.7 fL (79-99); MONOCYTES % (AUTO) 4.9 % (3.0-13.0); PLATELET COUNT (AUTO) 317 K/uL (130-400); RED BLOOD CELL COUNT(AUTO) 4.51 MIL/uL (4.50-6.20); RED CELL DISTRIBUTION WIDTH 13.4 % (11.0-15.5); WHITE BLOOD COUNT (AUTO) 10.2 K/uL (4.8-10.8)
[2020-11-19 05:58] LABS: ALBUMIN 2.4 g/dL (3.5-5.0); BILIRUBIN,TOTAL 0.7 mg/dL (0.2-1.0); CREATININE 0.8 mg/dL (0.5-1.5); CRP QUANTITATIVE 5.6 mg/L (0.00-9.0); POTASSIUM 4.5 mmol/L (3.5-5.1); TOTAL PROTEIN, SERUM 7.1 g/dL (6.0-8.3)
[2020-11-19] MEDS: ASCORBIC ACID 500 MG TAB PO SCH (08:20)
[2020-11-19] MEDS: FAMOTIDINE 20MG TAB PO SCH ×2 (08:20→20:24)
[2020-11-19] MEDS: ZINC SULFATE 220 CAPSULE PO SCH (08:20)
[2020-11-19] MEDS: DOCUSATE SODIUM 100 MG CAP PO SCH (08:20)
[2020-11-19] MEDS: DEXAMETHASONE SOD PHOSPHATE 4 MG/ML 1ML VIAL IVP SCH ×2 (08:22→20:24)
[2020-11-19] MEDS: ENOXAPARIN SODIUM 100 MG/1 ML SQ SCH ×2 (08:22→20:24)
[2020-11-19] MEDS: LACTULOSE 20 GM/30 ML UDCUP PO SCH (08:27)
[2020-11-19] MEDS: POLYETHYLENE GLYCOL 3350 17 GM POWD.PACK PO SCH (08:27)
[2020-11-19] MEDS: SENNOSIDES 8.6 MG TABLET PO SCH (08:27)
[2020-11-20] VITALS (11 sets, daily range): BP systolic 90–123; BP diastolic 60–95
[2020-11-20 04:19] LABS: BASOPHILS % (AUTO) 0.1 % (0.0-5.0); HEMATOCRIT 38.2 % (42-54); LYMPHOCYTES % (AUTO) 10.6 % (21.0-51.0); MEAN CORPUSCULAR HEMOGLOBIN 30.1 pg (27.0-33.0); MEAN CORPUSCULAR HGB CONC 34.6 g/dL (32.0-36.0); MEAN CORPUSCULAR VOLUME 87.2 fL (79-99); MONOCYTES % (AUTO) 4.3 % (3.0-13.0); NEUTROPHILS % (AUTO) 83.7 % (40.0-77.0); PLATELET COUNT (AUTO) 281 K/uL (130-400); RED BLOOD CELL COUNT(AUTO) 4.38 MIL/uL (4.50-6.20); RED CELL DISTRIBUTION WIDTH 13.3 % (11.0-15.5); WHITE BLOOD COUNT (AUTO) 9.1 K/uL (4.8-10.8)
[2020-11-20 04:41] LABS: ALANINE AMINOTRANSFERASE 31 U/L (12-78); ALBUMIN 2.4 g/dL (3.5-5.0); ASPARTATE AMINOTRANSFERASE 23 U/L (10-37); BILIRUBIN,TOTAL 0.6 mg/dL (0.2-1.0); CARBON DIOXIDE 27 mmol/L (21-32); CHLORIDE 98 mmol/L (101-111); CREATININE 0.7 mg/dL (0.5-1.5); GLOMERULAR FILTR. RATE CALC 122 mL/min (>60); GLUCOSE,RANDOM 143 mg/dL (70-105); POTASSIUM 4.2 mmol/L (3.5-5.1); SODIUM SERUM 130 mmol/L (136-145); TOTAL PROTEIN, SERUM 6.9 g/dL (6.0-8.3); UREA NITROGEN, BLOOD 20 mg/dL (7-18)
[2020-11-20 04:42] LABS: CRP QUANTITATIVE < 2.00 mg/L (0.00-9.0)
[2020-11-20] MEDS: ENOXAPARIN SODIUM 100 MG/1 ML SQ SCH ×2 (08:08→20:52)
[2020-11-20] MEDS: LACTULOSE 20 GM/30 ML UDCUP PO SCH (08:09)
[2020-11-20] MEDS: ASCORBIC ACID 500 MG TAB PO SCH (08:09)
[2020-11-20] MEDS: DOCUSATE SODIUM 100 MG CAP PO SCH (08:09)
[2020-11-20] MEDS: DEXAMETHASONE SOD PHOSPHATE 4 MG/ML 1ML VIAL IVP SCH ×2 (08:09→20:52)
[2020-11-20] MEDS: POLYETHYLENE GLYCOL 3350 17 GM POWD.PACK PO SCH (08:09)
[2020-11-20] MEDS: FAMOTIDINE 20MG TAB PO SCH ×2 (08:09→20:52)
[2020-11-20] MEDS: SENNOSIDES 8.6 MG TABLET PO SCH (08:09)
[2020-11-20] MEDS: ZINC SULFATE 220 CAPSULE PO SCH (08:09)
[2020-11-21] VITALS (7 sets, daily range): BP systolic 98–114; BP diastolic 62–77
[2020-11-21 03:54] LABS: BASOPHILS % (AUTO) 0.1 % (0.0-5.0); EOSINOPHILS % (AUTO) 0.3 % (0.0-8.0); HEMATOCRIT 37.2 % (42-54); LYMPHOCYTES % (AUTO) 8.4 % (21.0-51.0); MEAN CORPUSCULAR HGB CONC 33.9 g/dL (32.0-36.0); MEAN CORPUSCULAR VOLUME 88.6 fL (79-99); MONOCYTES % (AUTO) 3.7 % (3.0-13.0); NEUTROPHILS % (AUTO) 86.5 % (40.0-77.0); PLATELET COUNT (AUTO) 253 K/uL (130-400); RED CELL DISTRIBUTION WIDTH 13.5 % (11.0-15.5)
[2020-11-21 04:17] LABS: ALBUMIN 2.3 g/dL (3.5-5.0); BILIRUBIN,TOTAL 0.5 mg/dL (0.2-1.0); CREATININE 0.7 mg/dL (0.5-1.5); POTASSIUM 4.1 mmol/L (3.5-5.1); TOTAL PROTEIN, SERUM 6.5 g/dL (6.0-8.3)
[2020-11-21] MEDS: DOCUSATE SODIUM 100 MG CAP PO SCH (08:36)
[2020-11-21] MEDS: DEXAMETHASONE SOD PHOSPHATE 4 MG/ML 1ML VIAL IVP SCH (08:36)
[2020-11-21] MEDS: LACTULOSE 20 GM/30 ML UDCUP PO SCH (08:37)
[2020-11-21] MEDS: FAMOTIDINE 20MG TAB PO SCH ×2 (08:37→20:33)
[2020-11-21] MEDS: ZINC SULFATE 220 CAPSULE PO SCH (08:37)
[2020-11-21] MEDS: ASCORBIC ACID 500 MG TAB PO SCH (08:37)
[2020-11-21] MEDS: POLYETHYLENE GLYCOL 3350 17 GM POWD.PACK PO SCH (08:37)
[2020-11-21] MEDS: SENNOSIDES 8.6 MG TABLET PO SCH (08:37)
[2020-11-21] MEDS: ENOXAPARIN SODIUM 100 MG/1 ML SQ SCH (08:38)
[2020-11-21] MEDS: ENOXAPARIN SODIUM 60 MG/0.6 ML SQ SCH (20:33)
[2020-11-22 03:52] VITALS: BP 123/63
[2020-11-22 05:07] LABS: BASOPHILS % (AUTO) 0.3 % (0.0-5.0); HEMATOCRIT 37.8 % (42-54); LYMPHOCYTES % (AUTO) 15.8 % (21.0-51.0); MEAN CORPUSCULAR HEMOGLOBIN 29.9 pg (27.0-33.0); MEAN CORPUSCULAR HGB CONC 34.1 g/dL (32.0-36.0); MEAN CORPUSCULAR VOLUME 87.7 fL (79-99); NEUTROPHILS % (AUTO) 75.1 % (40.0-77.0); PLATELET COUNT (AUTO) 236 K/uL (130-400); RED BLOOD CELL COUNT(AUTO) 4.31 MIL/uL (4.50-6.20); RED CELL DISTRIBUTION WIDTH 13.6 % (11.0-15.5); WHITE BLOOD COUNT (AUTO) 8.9 K/uL (4.8-10.8)
[2020-11-22 05:38] LABS: ALBUMIN 2.4 g/dL (3.5-5.0); BILIRUBIN,TOTAL 0.5 mg/dL (0.2-1.0); CREATININE 0.8 mg/dL (0.5-1.5); POTASSIUM 3.8 mmol/L (3.5-5.1); TOTAL PROTEIN, SERUM 6.8 g/dL (6.0-8.3)
[2020-11-22 07:34] VITALS: BP 108/71
[2020-11-22] MEDS: LACTULOSE 20 GM/30 ML UDCUP PO SCH (09:46)
[2020-11-22] MEDS: DOCUSATE SODIUM 100 MG CAP PO SCH (09:46)
[2020-11-22] MEDS: DEXAMETHASONE SOD PHOSPHATE 4 MG/ML 1ML VIAL IVP SCH (09:47)
[2020-11-22] MEDS: FAMOTIDINE 20MG TAB PO SCH ×2 (09:47→19:59)
[2020-11-22] MEDS: SENNOSIDES 8.6 MG TABLET PO SCH (09:47)
[2020-11-22] MEDS: ZINC SULFATE 220 CAPSULE PO SCH (09:47)
[2020-11-22] MEDS: ASCORBIC ACID 500 MG TAB PO SCH (09:47)
[2020-11-22] MEDS: POLYETHYLENE GLYCOL 3350 17 GM POWD.PACK PO SCH (09:47)
[2020-11-22] MEDS: ENOXAPARIN SODIUM 60 MG/0.6 ML SQ SCH ×2 (09:54→19:59)
[2020-11-22 11:49] VITALS: BP 117/68
[2020-11-22 19:47] VITALS: BP 102/69
[2020-11-22 23:57] VITALS: BP 107/71
[2020-11-23 03:06] VITALS: BP 90/51
[2020-11-23 04:37] LABS: HEMATOCRIT 37.6 % (42-54); MEAN CORPUSCULAR HEMOGLOBIN 30.1 pg (27.0-33.0); MEAN CORPUSCULAR VOLUME 88.5 fL (79-99); RED BLOOD CELL COUNT(AUTO) 4.25 MIL/uL (4.50-6.20); RED CELL DISTRIBUTION WIDTH 13.9 % (11.0-15.5); RETICULOCYTE % (AUTO) 2.12 % (0.42-2.23); WHITE BLOOD COUNT (AUTO) 9.9 K/uL (4.8-10.8)
[2020-11-23 05:03] LABS: % IRON SATURATION 51.2 % (30-44)
[2020-11-23 05:23] LABS: CREATININE 0.7 mg/dL (0.5-1.5); CRP QUANTITATIVE 6.9 mg/L (0.00-9.0); POTASSIUM 3.8 mmol/L (3.5-5.1)
[2020-11-23] MEDS: LACTULOSE 20 GM/30 ML UDCUP PO SCH (07:49)
[2020-11-23] MEDS: DEXAMETHASONE SOD PHOSPHATE 4 MG/ML 1ML VIAL IVP SCH (07:49)
[2020-11-23] MEDS: ENOXAPARIN SODIUM 60 MG/0.6 ML SQ SCH ×2 (07:50→20:25)
[2020-11-23] MEDS: ASCORBIC ACID 500 MG TAB PO SCH (07:50)
[2020-11-23] MEDS: DOCUSATE SODIUM 100 MG CAP PO SCH (07:50)
[2020-11-23] MEDS: FAMOTIDINE 20MG TAB PO SCH ×2 (07:51→20:25)
[2020-11-23] MEDS: ZINC SULFATE 220 CAPSULE PO SCH (07:51)
[2020-11-23] MEDS: SENNOSIDES 8.6 MG TABLET PO SCH (07:51)
[2020-11-23] MEDS: POLYETHYLENE GLYCOL 3350 17 GM POWD.PACK PO SCH (07:51)
[2020-11-23 08:05] VITALS: BP 110/66
[2020-11-23 11:56] VITALS: BP 104/66
[2020-11-23 15:53] VITALS: BP 103/71
[2020-11-23] MEDS: BUDESONIDE 0.5 MG/2 ML INH IH SCH (18:30)
[2020-11-23] MEDS ORDERED: PHARMACY COMMUNICATION MISC SCH (19:00)
[2020-11-23 20:10] VITALS: BP 114/69
[2020-11-24 00:08] VITALS: BP 96/63
[2020-11-24 04:05] VITALS: BP 114/64
[2020-11-24 04:39] LABS: BASOPHILS % (AUTO) 0.2 % (0.0-5.0); LYMPHOCYTES % (AUTO) 17.4 % (21.0-51.0); MEAN CORPUSCULAR HEMOGLOBIN 29.6 pg (27.0-33.0); MEAN CORPUSCULAR HGB CONC 34.1 g/dL (32.0-36.0); MEAN CORPUSCULAR VOLUME 86.9 fL (79-99); MONOCYTES % (AUTO) 6.2 % (3.0-13.0); PLATELET COUNT (AUTO) 201 K/uL (130-400); RED BLOOD CELL COUNT(AUTO) 4.26 MIL/uL (4.50-6.20); RED CELL DISTRIBUTION WIDTH 13.9 % (11.0-15.5); WHITE BLOOD COUNT (AUTO) 9.7 K/uL (4.8-10.8)
[2020-11-24 04:57] LABS: ALBUMIN 2.4 g/dL (3.5-5.0); BILIRUBIN,TOTAL 0.5 mg/dL (0.2-1.0); CREATININE 0.7 mg/dL (0.5-1.5); CRP QUANTITATIVE 14.8 mg/L (0.00-9.0); MAGNESIUM 2.2 mg/dL (1.80-2.40); TOTAL PROTEIN, SERUM 6.8 g/dL (6.0-8.3)
[2020-11-24] MEDS: BUDESONIDE 0.5 MG/2 ML INH IH SCH ×2 (06:00→18:00)
[2020-11-24] MEDS: LACTULOSE 20 GM/30 ML UDCUP PO SCH (07:03)
[2020-11-24] MEDS: ASCORBIC ACID 500 MG TAB PO SCH (07:19)
[2020-11-24] MEDS: FAMOTIDINE 20MG TAB PO SCH ×2 (07:19→20:16)
[2020-11-24] MEDS: ZINC SULFATE 220 CAPSULE PO SCH (07:19)
[2020-11-24] MEDS: DEXAMETHASONE SOD PHOSPHATE 4 MG/ML 1ML VIAL IVP SCH (07:19)
[2020-11-24] MEDS: ENOXAPARIN SODIUM 60 MG/0.6 ML SQ SCH ×2 (07:19→20:16)
[2020-11-24 08:00] VITALS: BP 107/67
[2020-11-24 08:26] LABS: HEMATOCRIT 38.8 % (42-54); MEAN CORPUSCULAR HEMOGLOBIN 30.2 pg (27.0-33.0); MEAN CORPUSCULAR HGB CONC 34.3 g/dL (32.0-36.0); MEAN CORPUSCULAR VOLUME 88.2 fL (79-99); RED BLOOD CELL COUNT(AUTO) 4.4 MIL/uL (4.50-6.20); RED CELL DISTRIBUTION WIDTH 13.9 % (11.0-15.5); WHITE BLOOD COUNT (AUTO) 10.9 K/uL (4.8-10.8)
[2020-11-24 08:43] LABS: CREATININE 0.6 mg/dL (0.5-1.5); CRP QUANTITATIVE 18.9 mg/L (0.00-9.0); POTASSIUM 3.8 mmol/L (3.5-5.1)
[2020-11-24 12:00] VITALS: BP 110/68
[2020-11-24 16:00] VITALS: BP 130/76
[2020-11-24 19:55] VITALS: BP 102/71
[2020-11-25] VITALS (7 sets, daily range): BP systolic 92–121; BP diastolic 68–81
[2020-11-25 04:38] LABS: HEMATOCRIT 37.6 % (42-54); MEAN CORPUSCULAR HEMOGLOBIN 30.1 pg (27.0-33.0); MEAN CORPUSCULAR HGB CONC 33.5 g/dL (32.0-36.0); MEAN CORPUSCULAR VOLUME 89.7 fL (79-99); RED BLOOD CELL COUNT(AUTO) 4.19 MIL/uL (4.50-6.20); RED CELL DISTRIBUTION WIDTH 14.2 % (11.0-15.5); WHITE BLOOD COUNT (AUTO) 9.8 K/uL (4.8-10.8)
[2020-11-25 04:58] LABS: CREATININE 0.7 mg/dL (0.5-1.5); MAGNESIUM 2.1 mg/dL (1.80-2.40); POTASSIUM 3.9 mmol/L (3.5-5.1)
[2020-11-25] MEDS: BUDESONIDE 0.5 MG/2 ML INH IH SCH ×2 (06:00→18:00)
[2020-11-25] MEDS: LACTULOSE 20 GM/30 ML UDCUP PO SCH (09:00)
[2020-11-25] MEDS: ASCORBIC ACID 500 MG TAB PO SCH (09:43)
[2020-11-25] MEDS: FAMOTIDINE 20MG TAB PO SCH ×2 (09:43→20:37)
[2020-11-25] MEDS: DEXAMETHASONE SOD PHOSPHATE 4 MG/ML 1ML VIAL IVP SCH (09:43)
[2020-11-25] MEDS: ZINC SULFATE 220 CAPSULE PO SCH (09:43)
[2020-11-25] MEDS: ENOXAPARIN SODIUM 60 MG/0.6 ML SQ SCH ×2 (09:44→20:37)
[2020-11-26 03:59] VITALS: BP 123/74
[2020-11-26 04:10] LABS: BASOPHILS % (AUTO) 0.2 % (0.0-5.0); EOSINOPHILS % (AUTO) 4.4 % (0.0-8.0); MEAN CORPUSCULAR HGB CONC 34.2 g/dL (32.0-36.0); MEAN CORPUSCULAR VOLUME 87.6 fL (79-99); MONOCYTES % (AUTO) 5.7 % (3.0-13.0); NEUTROPHILS % (AUTO) 74.8 % (40.0-77.0); PLATELET COUNT (AUTO) 190 K/uL (130-400); RED BLOOD CELL COUNT(AUTO) 4.34 MIL/uL (4.50-6.20); RED CELL DISTRIBUTION WIDTH 14.1 % (11.0-15.5); WHITE BLOOD COUNT (AUTO) 10.6 K/uL (4.8-10.8)
[2020-11-26 04:26] LABS: ALBUMIN 2.4 g/dL (3.5-5.0); BILIRUBIN,TOTAL 0.5 mg/dL (0.2-1.0); CREATININE 0.6 mg/dL (0.5-1.5); CRP QUANTITATIVE 44.7 mg/L (0.00-9.0); POTASSIUM 3.8 mmol/L (3.5-5.1); TOTAL PROTEIN, SERUM 6.9 g/dL (6.0-8.3)
[2020-11-26] MEDS: DEXAMETHASONE SOD PHOSPHATE 4 MG/ML 1ML VIAL IVP SCH ×2 (08:21→20:49)
[2020-11-26] MEDS: FAMOTIDINE 20MG TAB PO SCH ×2 (08:22→20:49)
[2020-11-26] MEDS: LACTULOSE 20 GM/30 ML UDCUP PO SCH (08:22)
[2020-11-26] MEDS: ASCORBIC ACID 500 MG TAB PO SCH (08:22)
[2020-11-26] MEDS: ENOXAPARIN SODIUM 60 MG/0.6 ML SQ SCH ×2 (08:22→20:49)
[2020-11-26] MEDS: ZINC SULFATE 220 CAPSULE PO SCH (08:22)
[2020-11-26 08:30] VITALS: BP 117/72
[2020-11-26 12:53] VITALS: BP 106/71
[2020-11-26 16:51] VITALS: BP 112/75
[2020-11-26 19:42] VITALS: BP 100/70
[2020-11-26 23:11] VITALS: BP 110/69
[2020-11-27 03:57] VITALS: BP 103/66
[2020-11-27 05:21] LABS: BASOPHILS % (AUTO) 0.2 % (0.0-5.0); EOSINOPHILS % (AUTO) 0.2 % (0.0-8.0); HEMATOCRIT 37.6 % (42-54); MEAN CORPUSCULAR HEMOGLOBIN 30.4 pg (27.0-33.0); MEAN CORPUSCULAR HGB CONC 34.3 g/dL (32.0-36.0); MEAN CORPUSCULAR VOLUME 88.5 fL (79-99); MONOCYTES % (AUTO) 4.5 % (3.0-13.0); NEUTROPHILS % (AUTO) 82.3 % (40.0-77.0); PLATELET COUNT (AUTO) 189 K/uL (130-400); RED BLOOD CELL COUNT(AUTO) 4.25 MIL/uL (4.50-6.20); RED CELL DISTRIBUTION WIDTH 14.1 % (11.0-15.5); WHITE BLOOD COUNT (AUTO) 8.9 K/uL (4.8-10.8)
[2020-11-27 05:52] LABS: CREATININE 0.6 mg/dL (0.5-1.5); CRP QUANTITATIVE 50.5 mg/L (0.00-9.0); POTASSIUM 4.7 mmol/L (3.5-5.1)
[2020-11-27 07:55] VITALS: BP 112/72
[2020-11-27] MEDS: FAMOTIDINE 20MG TAB PO SCH ×2 (08:26→20:30)
[2020-11-27] MEDS: ZINC SULFATE 220 CAPSULE PO SCH (08:26)
[2020-11-27] MEDS: LACTULOSE 20 GM/30 ML UDCUP PO SCH ×2 (08:26→08:52)
[2020-11-27] MEDS: DEXAMETHASONE SOD PHOSPHATE 4 MG/ML 1ML VIAL IVP SCH (08:26)
[2020-11-27] MEDS: ASCORBIC ACID 500 MG TAB PO SCH (08:26)
[2020-11-27] MEDS: ENOXAPARIN SODIUM 60 MG/0.6 ML SQ SCH (08:27)
[2020-11-27 11:27] VITALS: BP 107/58
[2020-11-27 15:42] VITALS: BP 103/74
[2020-11-27 19:47] VITALS: BP 123/69
[2020-11-27] MEDS: SOLU-MEDROL 40MG VIAL IVP SCH (20:29)
[2020-11-27] MEDS: ENOXAPARIN SODIUM 100 MG/1 ML SQ SCH (20:29)
[2020-11-27 23:17] VITALS: BP 117/68
[2020-11-28 03:21] VITALS: BP 112/70
[2020-11-28 04:40] LABS: BASOPHILS % (AUTO) 0.1 % (0.0-5.0); EOSINOPHILS % (AUTO) 0.1 % (0.0-8.0); HEMATOCRIT 36.5 % (42-54); LYMPHOCYTES % (AUTO) 11.3 % (21.0-51.0); MEAN CORPUSCULAR HEMOGLOBIN 30.2 pg (27.0-33.0); MEAN CORPUSCULAR HGB CONC 34.5 g/dL (32.0-36.0); MEAN CORPUSCULAR VOLUME 87.5 fL (79-99); MONOCYTES % (AUTO) 4.4 % (3.0-13.0); NEUTROPHILS % (AUTO) 83.2 % (40.0-77.0); PLATELET COUNT (AUTO) 199 K/uL (130-400); RED BLOOD CELL COUNT(AUTO) 4.17 MIL/uL (4.50-6.20); RED CELL DISTRIBUTION WIDTH 14.1 % (11.0-15.5)
[2020-11-28 05:10] LABS: ALBUMIN 2.3 g/dL (3.5-5.0); BILIRUBIN,TOTAL 0.4 mg/dL (0.2-1.0); CREATININE 0.6 mg/dL (0.5-1.5); CRP QUANTITATIVE 30.9 mg/L (0.00-9.0); POTASSIUM 4.5 mmol/L (3.5-5.1); TOTAL PROTEIN, SERUM 6.9 g/dL (6.0-8.3)
[2020-11-28 07:39] VITALS: BP 114/75
[2020-11-28] MEDS: ASCORBIC ACID 500 MG TAB PO SCH (08:03)
[2020-11-28] MEDS: ZINC SULFATE 220 CAPSULE PO SCH (08:03)
[2020-11-28] MEDS: FAMOTIDINE 20MG TAB PO SCH ×2 (08:03→20:55)
[2020-11-28] MEDS: ENOXAPARIN SODIUM 100 MG/1 ML SQ SCH ×2 (08:04→20:56)
[2020-11-28] MEDS: SOLU-MEDROL 40MG VIAL IVP SCH ×2 (08:04→20:55)
[2020-11-28] MEDS: LACTULOSE 20 GM/30 ML UDCUP PO SCH ×2 (08:05→08:18)
[2020-11-28 11:46] VITALS: BP 111/67
[2020-11-28 16:10] VITALS: BP 119/76
[2020-11-28 19:26] VITALS: BP 94/67
[2020-11-28 23:18] VITALS: BP 114/77
[2020-11-29 03:06] VITALS: BP 117/72
[2020-11-29 05:03] LABS: HEMATOCRIT 37.1 % (42-54); MEAN CORPUSCULAR HEMOGLOBIN 29.7 pg (27.0-33.0); MEAN CORPUSCULAR HGB CONC 33.4 g/dL (32.0-36.0); RED BLOOD CELL COUNT(AUTO) 4.17 MIL/uL (4.50-6.20); RED CELL DISTRIBUTION WIDTH 14.2 % (11.0-15.5); WHITE BLOOD COUNT (AUTO) 8.6 K/uL (4.8-10.8)
[2020-11-29 05:26] LABS: ALBUMIN 2.4 g/dL (3.5-5.0); BILIRUBIN,TOTAL 0.4 mg/dL (0.2-1.0); CREATININE 0.6 mg/dL (0.5-1.5); CRP QUANTITATIVE 10.4 mg/L (0.00-9.0); PHOSPHORUS 3.6 mg/dL (2.5-4.9); POTASSIUM 4.3 mmol/L (3.5-5.1); TOTAL PROTEIN, SERUM 6.8 g/dL (6.0-8.3)
[2020-11-29 07:41] VITALS: BP 117/75
[2020-11-29] MEDS: FAMOTIDINE 20MG TAB PO SCH ×2 (07:52→20:18)
[2020-11-29] MEDS: ZINC SULFATE 220 CAPSULE PO SCH (07:52)
[2020-11-29] MEDS: ASCORBIC ACID 500 MG TAB PO SCH (07:52)
[2020-11-29] MEDS: SOLU-MEDROL 40MG VIAL IVP SCH ×2 (07:52→09:13)
[2020-11-29] MEDS: LACTULOSE 20 GM/30 ML UDCUP PO SCH (07:52)
[2020-11-29] MEDS: ENOXAPARIN SODIUM 100 MG/1 ML SQ SCH ×2 (07:53→20:19)
[2020-11-29 11:32] VITALS: BP 124/82
[2020-11-29 15:25] VITALS: BP 130/79
[2020-11-29] MEDS: BUDESONIDE 0.5 MG/2 ML INH IH SCH (17:27)
[2020-11-29 20:46] VITALS: BP 112/74
[2020-11-29 23:54] VITALS: BP 116/70
[2020-11-30 03:53] VITALS: BP 121/72
[2020-11-30 04:25] LABS: BASOPHILS % (AUTO) 0.6 % (0.0-5.0); EOSINOPHILS % (AUTO) 6.1 % (0.0-8.0); HEMATOCRIT 38.6 % (42-54); LYMPHOCYTES % (AUTO) 19.8 % (21.0-51.0); MEAN CORPUSCULAR HEMOGLOBIN 29.7 pg (27.0-33.0); MEAN CORPUSCULAR HGB CONC 33.9 g/dL (32.0-36.0); MEAN CORPUSCULAR VOLUME 87.5 fL (79-99); MONOCYTES % (AUTO) 6.7 % (3.0-13.0); NEUTROPHILS % (AUTO) 65.4 % (40.0-77.0); PLATELET COUNT (AUTO) 217 K/uL (130-400); RED BLOOD CELL COUNT(AUTO) 4.41 MIL/uL (4.50-6.20); RED CELL DISTRIBUTION WIDTH 14.1 % (11.0-15.5); WHITE BLOOD COUNT (AUTO) 9.1 K/uL (4.8-10.8)
[2020-11-30 04:43] LABS: ALBUMIN 2.4 g/dL (3.5-5.0); BILIRUBIN,TOTAL 0.4 mg/dL (0.2-1.0); CREATININE 0.6 mg/dL (0.5-1.5); CRP QUANTITATIVE 2.1 mg/L (0.00-9.0); POTASSIUM 4.1 mmol/L (3.5-5.1); TOTAL PROTEIN, SERUM 6.9 g/dL (6.0-8.3)
[2020-11-30 08:20] VITALS: BP 127/100
[2020-11-30] MEDS: FAMOTIDINE 20MG TAB PO SCH ×2 (11:01→21:04)
[2020-11-30] MEDS: LACTULOSE 20 GM/30 ML UDCUP PO SCH (11:01)
[2020-11-30] MEDS: SOLU-MEDROL 40MG VIAL IVP SCH (11:01)
[2020-11-30] MEDS: ASCORBIC ACID 500 MG TAB PO SCH (11:01)
[2020-11-30] MEDS: ZINC SULFATE 220 CAPSULE PO SCH (11:02)
[2020-11-30] MEDS: ENOXAPARIN SODIUM 100 MG/1 ML SQ SCH ×2 (11:04→21:05)
[2020-11-30 12:08] VITALS: BP 111/81
[2020-11-30 16:23] VITALS: BP 110/71
[2020-11-30 19:00] VITALS: BP 116/89
[2020-11-30] MEDS: BUDESONIDE 0.5 MG/2 ML INH IH SCH (19:53)
[2020-11-30 23:36] VITALS: BP 116/79
[2020-12-01 04:24] VITALS: BP 107/51
[2020-12-01] MEDS: ACETAMINOPHEN 325 MG TAB PO PRN (04:59)
[2020-12-01 07:34] VITALS: BP 109/68
[2020-12-01] MEDS: SOLU-MEDROL 40MG VIAL IVP SCH (08:15)
[2020-12-01] MEDS: FAMOTIDINE 20MG TAB PO SCH ×2 (08:15→20:08)
[2020-12-01] MEDS: ENOXAPARIN SODIUM 100 MG/1 ML SQ SCH ×2 (08:17→20:09)
[2020-12-01 11:32] VITALS: BP 117/60
[2020-12-01 15:21] VITALS: BP 120/80
[2020-12-01] MEDS: SODIUM CHLORIDE 3% FOR INHALATION 4 ML/AMP VIAL.NEB IH SCH (18:00)
[2020-12-01] MEDS: BUDESONIDE 0.5 MG/2 ML INH IH SCH ×2 (18:00→19:53)
[2020-12-01 19:37] VITALS: BP 124/80
[2020-12-01 23:29] VITALS: BP 102/66
[2020-12-02 03:28] VITALS: BP 106/65
[2020-12-02 04:24] LABS: HEMATOCRIT 37.1 % (42-54); MEAN CORPUSCULAR HGB CONC 34.2 g/dL (32.0-36.0); MEAN CORPUSCULAR VOLUME 87.7 fL (79-99); RED BLOOD CELL COUNT(AUTO) 4.23 MIL/uL (4.50-6.20); RED CELL DISTRIBUTION WIDTH 14.6 % (11.0-15.5); WHITE BLOOD COUNT (AUTO) 9.4 K/uL (4.8-10.8)
[2020-12-02 04:44] LABS: CREATININE 0.6 mg/dL (0.5-1.5); CRP QUANTITATIVE 9.5 mg/L (0.00-9.0); POTASSIUM 3.8 mmol/L (3.5-5.1)
[2020-12-02] MEDS: SODIUM CHLORIDE 3% FOR INHALATION 4 ML/AMP VIAL.NEB IH SCH ×2 (06:00)
[2020-12-02] MEDS: BUDESONIDE 0.5 MG/2 ML INH IH SCH (06:04)
[2020-12-02] MEDS: FAMOTIDINE 20MG TAB PO SCH ×2 (08:21→21:08)
[2020-12-02] MEDS: DEXAMETHASONE 4 MG TAB PO SCH (08:22)
[2020-12-02] MEDS: ENOXAPARIN SODIUM 100 MG/1 ML SQ SCH ×2 (08:23→21:08)
[2020-12-02 08:50] VITALS: BP 142/92
[2020-12-02 12:18] VITALS: BP 106/74
[2020-12-02] MEDS: ACETAMINOPHEN 325 MG TAB PO PRN (14:47)
[2020-12-02 21:15] VITALS: BP 128/78
[2020-12-03] VITALS (7 sets, daily range): BP systolic 99–121; BP diastolic 60–85
[2020-12-03 05:29] LABS: BASOPHILS % (AUTO) 0.5 % (0.0-5.0); EOSINOPHILS % (AUTO) 5.2 % (0.0-8.0); HEMATOCRIT 39.7 % (42-54); LYMPHOCYTES % (AUTO) 24.8 % (21.0-51.0); MEAN CORPUSCULAR HEMOGLOBIN 29.7 pg (27.0-33.0); MEAN CORPUSCULAR HGB CONC 32.7 g/dL (32.0-36.0); MEAN CORPUSCULAR VOLUME 90.6 fL (79-99); MONOCYTES % (AUTO) 5.1 % (3.0-13.0); NEUTROPHILS % (AUTO) 62.6 % (40.0-77.0); PLATELET COUNT (AUTO) 234 K/uL (130-400); RED BLOOD CELL COUNT(AUTO) 4.38 MIL/uL (4.50-6.20); RED CELL DISTRIBUTION WIDTH 14.6 % (11.0-15.5); WHITE BLOOD COUNT (AUTO) 7.7 K/uL (4.8-10.8)
[2020-12-03 06:03] LABS: CREATININE 0.6 mg/dL (0.5-1.5); CRP QUANTITATIVE 5.6 mg/L (0.00-9.0); MAGNESIUM 2.3 mg/dL (1.80-2.40); PHOSPHORUS 3.8 mg/dL (2.5-4.9); POTASSIUM 4.2 mmol/L (3.5-5.1)
[2020-12-03] MEDS: FAMOTIDINE 20MG TAB PO SCH ×2 (08:12→20:39)
[2020-12-03] MEDS: ENOXAPARIN SODIUM 100 MG/1 ML SQ SCH ×2 (08:13→20:40)
[2020-12-03] MEDS: DEXAMETHASONE 4 MG TAB PO SCH (08:13)
[2020-12-03] MEDS: BUDESONIDE 0.5 MG/2 ML INH IH SCH (10:00)
[2020-12-03] MEDS: SODIUM CHLORIDE 3% FOR INHALATION 4 ML/AMP VIAL.NEB IH SCH (10:00)
[2020-12-03] MEDS: METOPROLOL TARTRATE 25 MG TAB PO SCH ×2 (20:39→20:54)
[2020-12-04 03:31] VITALS: BP 105/63
[2020-12-04 04:20] LABS: BASOPHILS % (AUTO) 0.4 % (0.0-5.0); EOSINOPHILS % (AUTO) 5.5 % (0.0-8.0); HEMATOCRIT 37.6 % (42-54); LYMPHOCYTES % (AUTO) 26.8 % (21.0-51.0); MEAN CORPUSCULAR HEMOGLOBIN 29.6 pg (27.0-33.0); MEAN CORPUSCULAR HGB CONC 33.5 g/dL (32.0-36.0); MEAN CORPUSCULAR VOLUME 88.5 fL (79-99); NEUTROPHILS % (AUTO) 59.5 % (40.0-77.0); PLATELET COUNT (AUTO) 231 K/uL (130-400); RED BLOOD CELL COUNT(AUTO) 4.25 MIL/uL (4.50-6.20); RED CELL DISTRIBUTION WIDTH 14.6 % (11.0-15.5); WHITE BLOOD COUNT (AUTO) 7.9 K/uL (4.8-10.8)
[2020-12-04 04:35] LABS: CREATININE 0.6 mg/dL (0.5-1.5); CRP QUANTITATIVE 6.9 mg/L (0.00-9.0); POTASSIUM 3.7 mmol/L (3.5-5.1)
[2020-12-04 08:10] VITALS: BP 115/70
[2020-12-04] MEDS: FAMOTIDINE 20MG TAB PO SCH (08:43)
[2020-12-04] MEDS: DEXAMETHASONE 4 MG TAB PO SCH (08:44)
[2020-12-04] MEDS: METOPROLOL TARTRATE 25 MG TAB PO SCH ×3 (08:44→20:20)
[2020-12-04] MEDS: ENOXAPARIN SODIUM 100 MG/1 ML SQ SCH ×2 (08:45→20:14)
[2020-12-04 11:58] VITALS: BP 108/71
[2020-12-04 16:00] VITALS: BP 108/73
[2020-12-04 20:22] VITALS: BP 125/76
[2020-12-05] VITALS: BP 99/67
[2020-12-05 03:25] VITALS: BP 106/74
[2020-12-05 04:51] LABS: BASOPHILS % (AUTO) 0.7 % (0.0-5.0); EOSINOPHILS % (AUTO) 4.2 % (0.0-8.0); HEMATOCRIT 38.2 % (42-54); LYMPHOCYTES % (AUTO) 30.8 % (21.0-51.0); MEAN CORPUSCULAR HEMOGLOBIN 29.5 pg (27.0-33.0); MEAN CORPUSCULAR HGB CONC 32.7 g/dL (32.0-36.0); MEAN CORPUSCULAR VOLUME 90.1 fL (79-99); MONOCYTES % (AUTO) 6.9 % (3.0-13.0); NEUTROPHILS % (AUTO) 55.4 % (40.0-77.0); PLATELET COUNT (AUTO) 229 K/uL (130-400); RED BLOOD CELL COUNT(AUTO) 4.24 MIL/uL (4.50-6.20); RED CELL DISTRIBUTION WIDTH 14.6 % (11.0-15.5); WHITE BLOOD COUNT (AUTO) 7.1 K/uL (4.8-10.8)
[2020-12-05 05:00] LABS: CREATININE 0.6 mg/dL (0.5-1.5); CRP QUANTITATIVE 8.9 mg/L (0.00-9.0); POTASSIUM 3.8 mmol/L (3.5-5.1)
[2020-12-05 08:00] VITALS: BP 123/80
[2020-12-05] MEDS: METOPROLOL TARTRATE 25 MG TAB PO SCH (08:23)
[2020-12-05] MEDS: DEXAMETHASONE 4 MG TAB PO SCH (08:23)
[2020-12-05] MEDS: ENOXAPARIN SODIUM 100 MG/1 ML SQ SCH (08:24)
[2020-12-05 12:00] VITALS: BP 106/61
[2020-12-05 16:00] VITALS: BP 116/67
[2020-12-05] MEDS ORDERED: METO25 PO (17:50)
[2020-12-05] MEDS ORDERED: APIX5TAB PO (17:50)
[2020-12-05] MEDS ORDERED: DEXA6TAB PO (17:50)
[2020-12-05] MEDS ORDERED: ENOXAPARIN SODIUM 40 MG/0.4 ML SYRINGE SQ SCH (21:00)
== END 2020-12-05 18:29 | disposition home or self-care (01) | DRG 177 ==
LOC: EDH 14:04 → EDHIP 14:05 → 2AH 11-07 08:32
PROVIDERS: ADMIT Internal Medicine; ATTEND Internal Medicine
PROC: XW0DXM6 Introduction of Baricitinib into Mouth and Pharynx, External Approach, New Technology Group 6 (ICD-10-PCS; principal; 2020-11-04)
PROC: XW033E5 Introduction of Remdesivir Anti-infective into Peripheral Vein, Percutaneous Approach, New Technology Group 5 (ICD-10-PCS; 2020-11-04)
PROC: 5A0935A Assistance with Respiratory Ventilation, Less than 24 Consecutive Hours, High Flow/Velocity Cannula (ICD-10-PCS; 2020-11-04)
PROC: 5A09457 Assistance with Respiratory Ventilation, 24-96 Consecutive Hours, Continuous Positive Airway Pressure (ICD-10-PCS; 2020-11-05)
PROC: 5A0935A Assistance with Respiratory Ventilation, Less than 24 Consecutive Hours, High Flow/Velocity Cannula (ICD-10-PCS; 2020-11-07)
PROC: 5A0935A Assistance with Respiratory Ventilation, Less than 24 Consecutive Hours, High Flow/Velocity Cannula (ICD-10-PCS; 2020-11-08)
PROC: 5A09357 Assistance with Respiratory Ventilation, Less than 24 Consecutive Hours, Continuous Positive Airway Pressure (ICD-10-PCS; 2020-11-08)
PROC: 5A0935A Assistance with Respiratory Ventilation, Less than 24 Consecutive Hours, High Flow/Velocity Cannula (ICD-10-PCS; 2020-11-09)
PROC: 5A09357 Assistance with Respiratory Ventilation, Less than 24 Consecutive Hours, Continuous Positive Airway Pressure (ICD-10-PCS; 2020-11-09)
PROC: 5A09357 Assistance with Respiratory Ventilation, Less than 24 Consecutive Hours, Continuous Positive Airway Pressure (ICD-10-PCS; 2020-11-10)
PROC: 5A0935A Assistance with Respiratory Ventilation, Less than 24 Consecutive Hours, High Flow/Velocity Cannula (ICD-10-PCS; 2020-11-15)
PROC: 5A0935A Assistance with Respiratory Ventilation, Less than 24 Consecutive Hours, High Flow/Velocity Cannula (ICD-10-PCS; 2020-11-16)
PROC: 5A0935A Assistance with Respiratory Ventilation, Less than 24 Consecutive Hours, High Flow/Velocity Cannula (ICD-10-PCS; 2020-11-17)
PROC: 5A0935A Assistance with Respiratory Ventilation, Less than 24 Consecutive Hours, High Flow/Velocity Cannula (ICD-10-PCS; 2020-11-20)
PROC: 5A0935A Assistance with Respiratory Ventilation, Less than 24 Consecutive Hours, High Flow/Velocity Cannula (ICD-10-PCS; 2020-11-20)
PROC: 5A0935A Assistance with Respiratory Ventilation, Less than 24 Consecutive Hours, High Flow/Velocity Cannula (ICD-10-PCS; 2020-11-21)
PROC: 5A0935A Assistance with Respiratory Ventilation, Less than 24 Consecutive Hours, High Flow/Velocity Cannula (ICD-10-PCS; 2020-11-22)
PROC: 5A0935A Assistance with Respiratory Ventilation, Less than 24 Consecutive Hours, High Flow/Velocity Cannula (ICD-10-PCS; 2020-11-23)
PROC: 5A0935A Assistance with Respiratory Ventilation, Less than 24 Consecutive Hours, High Flow/Velocity Cannula (ICD-10-PCS; 2020-11-24)
PROC: 5A0935A Assistance with Respiratory Ventilation, Less than 24 Consecutive Hours, High Flow/Velocity Cannula (ICD-10-PCS; 2020-11-25)
PROC: 5A0935A Assistance with Respiratory Ventilation, Less than 24 Consecutive Hours, High Flow/Velocity Cannula (ICD-10-PCS; 2020-11-26)
PROC: 5A0935A Assistance with Respiratory Ventilation, Less than 24 Consecutive Hours, High Flow/Velocity Cannula (ICD-10-PCS; 2020-11-27)
PROC: 5A0935A Assistance with Respiratory Ventilation, Less than 24 Consecutive Hours, High Flow/Velocity Cannula (ICD-10-PCS; 2020-11-28)
PROC: 5A0935A Assistance with Respiratory Ventilation, Less than 24 Consecutive Hours, High Flow/Velocity Cannula (ICD-10-PCS; 2020-11-29)
PROC: 5A0935A Assistance with Respiratory Ventilation, Less than 24 Consecutive Hours, High Flow/Velocity Cannula (ICD-10-PCS; 2020-11-30)
DX: U07.1 COVID-19 (principal); A41.89 Other specified sepsis; J12.82 Pneumonia due to coronavirus disease 2019; J80 Acute respiratory distress syndrome; J15.7 Pneumonia due to Mycoplasma pneumoniae; N17.9 Acute kidney failure, unspecified; E87.1 Hypo-osmolality and hyponatremia; D68.59 Other primary thrombophilia; M62.82 Rhabdomyolysis; I10 Essential (primary) hypertension; E11.9 Type 2 diabetes mellitus without complications; E86.1 Hypovolemia; B97.89 Other viral agents as the cause of diseases classified elsewhere; E87.8 Other disorders of electrolyte and fluid balance, not elsewhere classified; Z79.01 Long term (current) use of anticoagulants
CPT/HCPCS: 36415; 36600; 71045; 71275; 80048; 80053; 80305; 82435; 82550; 82607; 82728; 82746; 82803; 82947; 82948; 83036; 83540; 83550; 83605; 83735; 83874; 83880; 84100; 84132; 84145; 84295; 84443; 84484; 85018; 85025; 85027; 85045; 85378; 86140; 86606; 86612; 86635; 86698; 86738; 87449; 87635; 87804; 93005; 93970; 94660; 94760; 97039; G0378; J0456; J0696; J1100; J1650; J2920; J3490; J7030; J7050; J8540; Q9967